=== PATIENT | male | born 1935 | race Caucasian/White ===

== ENCOUNTER → 2017-03-25 | Outpatient (CLI) | payer BC ==
[~2017-03-25] MED LIST: BIMA0.03 OPL; CITA20TA9 PO; ERGO1CAP35 PO; FISHOIL PO; IRBE-41 PO; LEVO50TA PO; LSX/40 PO; METF500T PO; METO-596 PO; MULTCAP33 PO; POTA-327 PO; RANI300T2 PO; TYLER650 PO; WARF5TAB90 PO
== END | disposition home or self-care (01) ==
LOC: C.PATHSPEC 17:31
PROVIDERS: ATTEND Plastic Surgery
DX: D04.60 Carcinoma in situ of skin of unspecified upper limb, including shoulder (principal)